=== PATIENT | male | born 1975 | race Caucasian/White ===

== ENCOUNTER 2017-09-16 06:12 | Observation (INO) ==
[2017-09-16] MEDS ORDERED: Albuterol 2.5 MG/3 ML NEBULIZER ONE (06:35)
[2017-09-16] MEDS ORDERED: Ringers Solution, Lactated 1,000 ML IVC SCH (06:45)
[2017-09-16] MEDS ORDERED: Vancomycin (wt based) 1,000 MG VIAL IV ONE (07:00)
--- NOTE | 2017-09-16 07:17 | Anesthesia Evaluation PreOp ---
Date of Encounter: 09/16/17 Time of Encounter: 07:14 - Past History Planned Operation: I and D debride left foot all infected tissue and bone, Cardiac History: HTN Pulmonary History: Smoker (did smoke today) FOOD PRODUCTION ASSOCIATE History: Denies Any Significant HX Other Medical History: Diabetes Type II Anesthesia History: No Prior Anesthetic Complications, Past Anesthesia (L great toe amputation, I and D L foot abcess, I and D Rt foot) Alcohol Use: rarely Drug use: unknown Medications and Allergies GlipiZIDE [Glucotrol] 5 mg PO BID 07/16/15 [History] HYDROcodone/Acet 5/325 mg [[place] 5-325 mg] 1 tab PO Q6H #16 tab 09/18/16 [Rx] Sulfamethoxazole/Trimeth DS [Bactrim DS] 1 each PO BID #20 tablet 09/18/16 [Rx] Clindamycin HCl [Cleocin HCl] 150 mg PO QID #40 capsule 09/22/16 [Rx] HYDROcodone/Acet 5/325 mg [[place] 5-325 mg] 1 tab PO Q6H PRN #14 tab 09/22/16 [Rx ] 3 Allergy/AdvReac Type Severity Reaction Status Date / Time No Known Allergies Allergy Verified 09/16/17 07:23 - Meds/Allergy Pre-op Review Medications Reviewed: Yes Allergies Reviewed: Yes Beta Blockers on Current Med List: No Anesthesia Results - Labs Laboratory Tests 09/06/17 17:42 WBC 8.9 RBC 4.26 Hgb 11.9 L Hct 36.6 L Plt Count 466 H - Imaging EKG: report reviewed (SR PACs) Anesthesia Exam O2 Sat Height 1.93 m Height 1.93 m Weight 141.521 kg Weight 141.521 kg O2 Sat by Pulse Oximetry 96 Vital Signs Temp Pulse Resp BP Pulse Ox 98.0 F 72 18 147/84 96 09/16/17 06:31 09/16/17 06:31 09/16/17 06:31 09/16/17 06:31 09/16/17 06:31 Blood glucose: 233 Height: 6'4" Weight: 312# NPO (# of Hours): >8 Pain Scale: 0 - HEENT Pupil (Motor): Pupils equal, EOMI Mallampati: II Oral Opening: Greater than 3 - FOOD PRODUCTION ASSOCIATE LOC: Oriented FOOD PRODUCTION ASSOCIATE Motor: Normal RUE, Normal LUE, Normal RLE, Normal LLE, Normal Face FOOD PRODUCTION ASSOCIATE Sensory: Normal: RUE, LUE, Face, Deficit: RLE (numbness), LLE (numbness) - Cardiac Rhythm: Regular - Pulmonary Breath Sounds: bilateral Clear Respiratory Effort: Symmetrical Anesthesia Assess/Plan ASA Score: 3 (HTN, smoker, DM) Modified [place] Scale for Level of Consciousness: Cooperative, oriented, and tranquil Anesthetic Plan: MAC (r/b/a discussed, questions answered, consent obtained, plan b GA) Monitoring Plan: Standard Monitors Recovery Plan: PACU
[2017-09-16] MEDS ORDERED: Bupivacaine/Clonidine Syringe 1 EACH SYRINGE ONE (07:22)
[2017-09-16] MEDS ORDERED: Ketamine *HR* 500 MG/10 ML MDV ONE (07:26)
[2017-09-16] MEDS ORDERED: *HR* FentaNYL (PF) 100 MCG/2 ML VIAL ONE (07:26)
[2017-09-16] MEDS ORDERED: Propofol 500 MG/50 ML INFUS..BTL ONE ×2 (07:29→08:14)
--- NOTE | 2017-09-16 07:34 | History & Physical Report ---
Date of Encounter: 09/16/17 Time of Encounter: 07:34 24 Hour HP Update - Instructions Instructions: If the History and Physical is less than 30 days old and was completed prior to A.M. admission and or procedure and has NOT been updated on calendar day of procedure please complete this update prior to performing procedure. - Update Patient reports changes in Medical Condition: No Changes in examination, assessment, or condition: No Changes in Medication: No Preop tests/diagnostics Reviewed: Yes Pre-Op MRSA Screen: Positive, Vancomycin for Prophylaxis Surgery Remains Indicated: Yes Consent for Planned Operative Procedure(s) Verified: Yes
[2017-09-16] MEDS ORDERED: Lidocaine -MPF 2% 2 ML VIAL ONE (07:44)
[2017-09-16] MEDS ORDERED: Vancomycin 1,000 MG VIAL ONE (07:48)
--- NOTE | 2017-09-16 09:55 | Anesthesia Evaluation Post Op ---
Date of Encounter: 09/16/17 Time of Encounter: 09:54 - Vital Signs Vital Signs: Vital Signs/O2 Sat, Most Current Temp Pulse Resp BP Pulse Ox 98.0 F 72 18 147/84 96 09/16/17 06:31 09/16/17 06:31 09/16/17 06:31 09/16/17 06:31 09/16/17 06:31 - Lungs Lungs: Clear Ascult./Percussion - Airway Airway: Non-obstructed - Cardiovascular Regular Rate - Mental Status Mental Status: Asleep with brisk response to light stimulation - Pain Pain Scale: 0 Pain Scale used: Numeric (1 - 10) - Nausea Vomiting Nausea Vomiting: Not Present - Hydration Hydration: Tolerates oral liquids - Discharge PostOp Status: Transfer Patient to floor Attestation: I have assessed this patient and find they meet discharge criteria.
[2017-09-16 11:42] LABS: Basophils % 0.6 %; Eosinophils # 0.2 K/mcL (0.0-0.6); Eosinophils % 2.9 %; Hemoglobin 11.2 g/dL (12.9-16.9); Immature Granulocytes % 0.4 % (0-4); Lymphocytes % 43.7 %; Mean Corpuscular HGB Conc 31.1 g/dL (31.6-35.5); Mean Corpuscular Hemoglobin 27.8 pg (28.0-33.3); Mean Corpuscular Volume 89.3 fL (83.0-100.0); Mean Platelet Volume 10.4 fL (9.4-12.4); Monocytes # 0.4 K/mcL (0.0-1.3); Monocytes % 6.2 %; Neutrophils # 3.1 K/mcL (1.6-8.9); Platelet Count 332 K/mcL (140-400); Red Blood Count 4.03 M/mcL (4.19-5.50); Red Cell Distribution Width 13.2 % (11.5-14.5); Segmented Neutrophils % 46.2 %
[2017-09-16 11:57] LABS: BUN/Creatinine Ratio 25 (6-26); Blood Urea Nitrogen 24 mg/dL (6-20); eGFR For African Americans > 60 (> 60); eGFR For Non-African Americans > 60 (> 60)
--- NOTE | 2017-09-16 14:37 | Infectious Disease Consult ---
Date of Encounter: 09/16/17 Time of Encounter: 14:35 Assessment and Plan (1) Left foot infection Status: Acute Assessment and plan: Location: Left foot. Causative organism: MRSA and Acinetobacter baumannii (Intermediate to Rocephin) per cultures obtained in the office 09/06/17. Secondary to non-healing wound sustained last summer when he stepped on a bolt at work. X-ray of the foot done 09/06/17 showed some soft tissue air, but no osteomyelitis. ESR >130, CRP 54. Podiatry consulted and following. Status post left foot I & D 09/16/[address] Dai. Operative report not available at this time. Await intra-op cultures, but not sure how helpful they will be since the patient was on PO antibiotics at home. Await intra-op cultures and monitor for anaerobic cultures to come back positive. Start Vancomycin IV. Pharmacy to dose. Goal trough ~15. Start Levaquin 750mg IV daily. Start probiotics. Wound care and activity restrictions per the podiatry team. Repeat inflammatory markers prior to discharge. Duration of treatment depends on the clinical picture, but likely 6 weeks of IV antibiotics. Monitor renal function and for drug toxicity and dose-adjust antibiotics. PICC Line placed pre-op today. Will need weekly CBC, BUN/Cr, ESR, CRP, and Vanc trough. Will need weekly PICC care per protocol. Follow up with ID 10/04/17 at 0920. (2) Foot ulcer due to secondary DM Status: Acute Assessment and plan: Secondary to traumatic injury after stepping on a bolt several months ago. Non-healing likely due to poorly controlled diabetes. Wound care per the podiatry team. (3) Diabetes mellitus type II, uncontrolled Status: Acute Assessment and plan: Uncontrolled. HgbA1C 9.3% Recommend aggressive glucose monitoring and control to promote wound healing and prevent re-infection. Management per the primary team. Qualifiers: Qualified Code(s): E11.65 - Type 2 diabetes mellitus with hyperglycemia (4) Obesity (BMI 30-39.9) Status: Acute Infectious Disease HPI - Data of Consult Patient: new to practice Consult date: 09/16/17 Requesting Physician: Nelson Dai, Primary Care Provider: PCP NONE - Consult Narrative Reason for consult: Left foot infection History of present illness: Mr. Gabriel is a 41 year old male with a past medical history of uncontrolled diabetes diagnosed 10 years ago who is supposed to take oral anti- hyperglycemics who is noncompliant the remote history of partial a beautician of the right foot second toe incomplete amputation of the left foot great toe. The patient was admitted to the hospital September 16 for surgical management of a left foot infection. We are consulted for 15 for antibiotic recommendations for left foot infection. Foot, the patient is a 41-year-old male with a past medical history as stated above. The patient states that last summer he stepped audible at work and sustained an injury to the plantar aspect of his left foot. He states that the wound was nonhealing until a couple of months ago when finally healed over, but opened back up about 5 weeks ago. He states he fell at work and [facility], but was noted to have worsening of the ulcer at that time. He was evaluated by podiatry and recommended to have a transmetatarsal a beautician, which the patient refused. After discharge, he followed up with Dr. Dai was seen in the office on September 06. Wound culture obtained at that visit grew Acinetobacter baumannii and MRSA. He had a foot x- ray that was negative for osteoarthritis, but did show some soft tissue air. He was started on oral clindamycin and oral Levaquin. He had labs drawn that showed a normal white blood cell count, but did show an ESR or than 130 and a CRP of 54. His A1c was 9.3. He was advised to go to the hospital for admission and surgery, but declined at that time. He was scheduled for surgery earlier today and underwent an incision and debridement of the left foot. The operative report is not available at this time, but I did speak with Dr. Dai he states the infection is extensive and the patient will likely require IV antibiotics. We've been asked to evaluate and make further recommendations. My exam today, the patient endorses a history as stated above. He denies any fevers or chills or rigors. He denies any headache or neck pain. He denies a congestion, earache, or sore throat. He denies any chest pain, shortness of breath, or cough. He denies any nausea, vomiting, diarrhea, constipation. He denies abdominal pain or urinary complaints. He states appetite is good. He states he does not regularly check his blood sugars at home. He reports intermittent chronic pain in the left foot, but nothing out of the ordinary. He denies any pain in his back or extremities at this time. He states there was some light green drainage from the wound and he noticed a foul odor over the past couple days. He denies oral thrush or new skin lesions. The patient lives at home by himself. 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 Reports he smokes about half pack of cigarettes per day, which is down significantly from 3 packs of cigarettes he was smoking per day. He reports social use of alcohol, but denies any illicit drug use. He does not have any pets at home. He denies recent travel. CC: Nelson Dai, Past Med Surg Social Fam HX - Past Medical History Attestation: Yes The following information was validated with the patient. Source: patient, old records reviewed, nursing notes reviewed Medical history: diabetes (Uncontrolled, not on any treatment), hypertension, other Psychiatric history: depression - Past Surgical History Surgical History: orthopedic, other (Left great toe amputation, Right second toe partial amputation) - Social History Smoking Status: Current every day smoker Packs per day: 1/2 Smokeless Tobacco Status: No Alcohol use: rarely Drug use: unknown Occupational status: employed Current living situation: Home - Independent Activity Level: Independent ambulation Recent Out of Country Travel Within the Last 8 Weeks: No Exposure or Possible Exposure to Illness During Travel: No - Family History Mother Living Status: Still Living Hx Family Cardiac Disorders: Yes (cad) Father Living Status: Hx Family Cardiac Disorders: Yes (cad) Hx Family Endocrine Disorder: Yes (DM) Infectious Disease-CN:Meds No Known Home Drugs 09/16/17 [History] 3 Allergy/AdvReac Type Severity Reaction Status Date / Time No Known Allergies Allergy Verified 09/16/17 07:23 All systems: reviewed and no additional remarkable complaints except as stated Exam - Constitutional Vitals: Temp Pulse Resp BP Pulse Ox 97.6 F 70 16 169/92 98 09/16/17 12:50 09/16/17 12:50 09/16/17 12:50 09/16/17 12:50 09/16/17 12:50 General appearance: cooperative, no acute distress, obese - Head Head exam: Present: atraumatic, normal inspection, normocephalic - Eye Eye exam: Present: EOMI, normal appearance, PERRL Pupils: Present: normal accommodation - ENT ENT exam: Present: mucous membranes moist - Neck Neck exam: Present: normal inspection - Respiratory Respiratory exam: Present: CTAB. Absent: rales, respiratory distress, rhonchi, wheezes - Cardiovascular Cardiovascular exam: Present: RRR, +S1, +S2 - GI/Abdominal GI/Abdominal exam: Present: distended (obese), normal bowel sounds, soft. Absent: tenderness - Extremities Exam Extremities exam: Present: normal inspection Additional comments: Distal aspect of right toe #2 previously amputated with callous noted to the distal plantar aspect. Left foot post-op dressing C/D/I. - Neurological Exam Neurological exam: Present: alert, oriented X3, no focal deficits - Psychiatric Psychiatric exam: Present: normal affect, normal mood - Skin Skin exam: Present: dry, intact, normal color, warm Infectious Disease CN: Results - Labs CBC & Chem 7: 09/16/17 11:30 09/16/17 11:30 - VTE Documentation of Mechanical Device: Intermittent pneumatic compression device Consult Discharge Plan - Plan Referrals: Beatriz Gleason CNP [Advanced Practice Nurse] - 10/04/17 9:20 am - Attending Attestation I examined this patient and my medical decision-making was reviewed with the Resident Physician. I agree with the documented findings, disposition and treatment plan as described except to the extent set forth below. This is an addendum to original report dictated by Beatriz Gleason CNP, please refer to Fede hawkins for full details. Patient is a 5-year-old gentleman has been diabetic for about 10-11 years that is very poorly controlled because of noncompliance. Patients most recent A1c I believe is 9 or 10. Patient has had osteomyelitis of the bilateral foot in the past and has had amputations of the left great toe and the right second toe for infections in the past. Exact details of these infections are not clear. Apparently patient has this nonhealing foot ulcer. Patient stepped on a bolt at work apparently. Patient was evaluated a couple weeks ago about [place] and they were recommending transmetatarsal amputation. Patient was evaluated and seen by Dr. Dai who recommended admitting but the patient refused so the patient was started on oral clindamycin and Levaquin and cultures were obtained. Cultures grew MRSA and Acinetobacter baumanni patient was brought in for I&D. Patient was taken to surgery where he had an amputation of the left great toe. Intra-Op cultures were sent. Patient was started empirically on vancomycin and Levaquin. We were asked to evaluate the patient and make further recommendations. At this point patient likely has osteomyelitis. Await final report and will discuss with podiatry. Likely he will need IV antibiotics since PICC line has been placed. We will continue vancomycin pharmacy to dose with goal vancomycin trough of 15 Start Levaquin 750 mg IV daily Monitor kidney function closely Monitor for drug drug interaction Check inflammatory markers prior to discharge Duration and treatment of antibiotics depends on the clinical picture.
[2017-09-16] MEDS: Lactobacillus 1 EACH CAP.SPRINK PO SCH (15:55)
--- NOTE | 2017-09-16 17:11 | Orthopedic Operative Note ---
Date of procedure: 09/16/17 Pre-op diagnosis: Osteomyelitis with abscess, toe #2 and sinus tracts left forefoot Post-op diagnosis: other (Ulceration plantar first metatarsal distal left foot) Procedure: 09/16/17 17:10 #1: Incision of bone cortex for osteomyelitis #2 partial excision of distal metatarsal #2 for osteomyelitis #3 amputation of toe #2 left foot #4 adjacent tissue transfer left foot 09/16/17 17:11 Implants: None Complications: None Anesthesia: MAC, local Local Anesthetics: 0.25% Sensorcaine HCL SubQ (cc) Surgeon: Nelson Dai Was there an customer care assistant present: No Kitchen Manager Other: Cash Francisco D.O. Estimated blood loss (cc): 20 Tourniquet Time (Minutes): 0 Specimen: Toe #2 left foot Condition: stable Disposition: floor Procedure in Detail: 09/16/17 17:13 Details in summary of procedure: The patient was brought to the surgical suite. A sign in procedure was performed. He was then transferred to the surgical table and positioned properly safely securely. The left foot was then elevated on a foam block. Anesthetic timeout was taken. Left ankle was then prepped with alcohol 3 times. An ankle block was then carried out. An ankle tourniquet was applied but not employed. The left foot was then prepped and draped in usual sterile manner. Surgical timeout was taken. Planned incision was then centered around the sinus tract was on the plantar aspect of the second MTPJ and another sinus tract at the 10 o'clock position of the ulceration beneath the distal first metatarsal. These 2 sinus tracts connected plantarly just beneath the second metatarsal distally. The incision was begun at the dorsal aspect of the second metatarsophalangeal joint and brought distally to the midshaft of the proximal phalanx and then 2 semielliptical incisions were then made in a racquet fashion meeting at the sulcus at the base of the second toe it was then brought obliquely toward the phlegmon/sinus tract where 2 more similar elliptical incisions were used to encompass a sinus tract and then proximally and medially toward the sinus tract at the 10 o'clock position of the ulceration. The second toe was then dissected free beginning at the periosteum the base proximal phalanx to the metatarsophalangeal joint where the ligamentous structures were divided as well as the extensor and flexor tendons cleanly with a #15 scalpel blade. The toe was then disarticulated and sent for gross and microscopic. There is noted to be seropurulent drainage at the base of the proximal phalanx but did not invade the joint. The wound was flushed with copious amounts sterile saline. The incision was then deepened in the oblique fashion where two elliptical incisions were completed a sinus tract excised. The incision was continued proximally and obliquely toward the original sinus tract from the ulceration. All sinus tracts were then excised completely down to the distal aspect of the second metatarsal. The distal aspect the second metatarsal was then isolated with a McGlamry elevator. The distal aspect of the metatarsal was found to be of normal color texture and density although we are quite irregular. At that point the soft tissue was reflected off the distal metatarsal dorsally medially and laterally with a McGlamry elevator. The distal aspect the second metatarsal was then resected dorsal plantar fashion cleanly with #111 blade on a TPS sagittal saw. Remaining bone was of normal color texture density as well. The wound was thoroughly debrided with a [employer] debrider. Any redundant tissue dorsally was then remodeled accordingly. The soft tissue was then debrided with a pickup and Metzenbaum as well any nonviable tissue was thoroughly debrided. The wound was thoroughly irrigated again. At that juncture, the adjacent tissue transfer was then performed by transposing the dorsal medial flap, which was then repositioned, to the lateral incision line.. A 2-0 Prolene and 3-0 Prolene sutures were then placed and tied sequentially. Hemostasis was completely achieved prior to closure. The ulceration was then excised with a #15 scalpel blade to obtain a fresh skin edge. The wound was then dressed with Adaptic 4 x 4's and Coban and for compression dressing. Estimated blood loss less than 20 mL. Complications none.. The patient was then transferred to the holding room in good condition with vital signs stable.
[2017-09-16] MEDS ORDERED: D5% in Water 1,000 ML IVC PRN (19:16)
[2017-09-16] MEDS ORDERED: *HR* Dextrose 50 % in Water (Syg) 50 ML SYRINGE IVP PRN (19:16)
[2017-09-16] MEDS ORDERED: Dextrose Gel 15 GM/37.5 ML TUBE PO PRN ×2 (19:16)
--- NOTE | 2017-09-16 19:51 | Internal Medicine Consult Note ---
Date of Encounter: 09/16/17 Time of Encounter: 19:48 - Assessment and Plan (1) Osteomyelitis of foot, left, acute Current Visit: Yes Status: Acute Assessment and plan: Operative management per podiatry. Infectious disease service on board managing antibiotic therapy. (2) Tobacco abuse Current Visit: Yes Status: Acute Assessment and plan: I advised smoking cessation and provided counseling. I will order nicotine patch. (3) DVT prophylaxis Current Visit: Yes Status: Acute Assessment and plan: High risk for DVT due to infection and recent surgery. I will order Lovenox subcutaneous. (4) Diabetes mellitus type II, uncontrolled Current Visit: Yes Status: Acute Assessment and plan: We will start insulin. Diabetic education. Nutrition consult. Diabetic diet. He will likely need to be discharged with insulin. 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 (6) Foot ulcer due to secondary DM Current Visit: No Status: Acute (7) Essential hypertension Current Visit: Yes Status: Acute Assessment and plan: He has multiple elevated blood pressure readings, likely secondary to essential hypertension. I will start losartan. Thank you for involving us in the care of this patient. We will follow along. Internal Medicine - CN: HPI - Data of Consult Patient: new to practice Consult date: 09/16/17 Requesting Physician: Nelson Dai, - Consult Narrative Reason for consult: Perioperative medical management of elevated blood pressure History of present illness: Mr. Gabriel is a 41 year old male with past medical history significant for type 2 diabetes and obesity who was brought in electively by podiatry for incision and debridement of the left foot ulceration. I evaluated him postoperatively. He developed a left foot wound months ago when he stepped on a sharp metallic object. Initially the wound has healed but 1 month ago left foot started swelling up and the wound both opened up and drained pus. He presented to an outside hospital and had a brief course of vancomycin however he signed out AMA. He was seen by Dr. Dai in the office 10 days ago and was scheduled for incision and debridement today. He has been diagnosed with diabetes and prescribed metformin which he did not tolerate due to profuse diarrhea. He was prescribed glipizide which caused him mental confusion. He stopped taking all antidiabetic medication. Currently he is not taking no prescription medication and he does not have a PCP. He admits to drinking regular soda and not following a strict diabetic diet. For the last 10 days has been experiencing mild dull left foot pain, throbbing, worse with ambulation, denies associated fevers or chills. Review of systems pertinent for foot numbness, otherwise negative. Family history: Patient's father suffered with diabetes and of heart disease. 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 Past Med Surg Social Fam HX - Past Medical History Medical history: diabetes (Uncontrolled, not on any treatment), hypertension, other Psychiatric history: depression - Past Surgical History Surgical History: orthopedic, other (Left great toe amputation, Right second toe partial amputation) - Social History Smoking Status: Current every day smoker Packs per day: 1/2 Smokeless Tobacco Status: No Alcohol use: rarely Drug use: unknown - Family History Mother Living Status: Still Living Hx Family Cardiac Disorders: Yes (cad) Father Living Status: Hx Family Cardiac Disorders: Yes (cad) Hx Family Endocrine Disorder: Yes (DM) Internal Medicine - CN: Meds No Known Home Drugs 09/16/17 [History] 3 Allergy/AdvReac Type Severity Reaction Status Date / Time No Known Allergies Allergy Verified 09/16/17 07:23 Internal Medicine - CN: Exam - Constitutional Vitals: Temp Pulse Resp BP Pulse Ox 98.2 F 61 15 167/74 97 09/16/17 16:05 09/16/17 16:05 09/16/17 16:05 09/16/17 17:52 09/16/17 16:05 General appearance IM: Present: A&O X 3, no acute distress - Head Head exam: Present: atraumatic - Eye Eye exam: Present: EOMI, PERRL. Absent: scleral icterus - Respiratory Respiratory exam: Present: CTAB. Absent: accessory muscle use, wheezes - Cardiovascular Cardiovascular exam IM: Present: RRR, +S1, +S2. Absent: systolic murmur, tachycardia - GI/Abdominal GI/Abdominal exam IM: Present: soft. Absent: distended, guarding, rebound, no peritoneal signs - Extremities Exam Additional comments: Left foot covered with surgical dressing clean dry and intact - Skin Skin exam IM: Present: dry, intact. Absent: erythema Internal Medicine - CN: Reslt - Labs CBC & Chem 7: 09/16/17 11:30 09/16/17 11:30 Labs: Short CBC 09/16/17 Range/Units 11:30 WBC 6.8 (4.3-11.1) K/mcL Hgb 11.2 L (12.9-16.9) g/dL Hct 36.0 L (37.5-50.1) % Plt Count 332 (140-400) K/mcL Neutrophils # 3.1 (1.6-8.9) K/mcL BMP 09/16/17 11:30 BUN 24 H Creatinine 0.96 - Impressions Impressions Foot X-Ray 09/16/17 10:05 IMPRESSION: Postoperative changes of resection of the distal 2nd digit. D/ / 09/16/2017 10:56:23 Sharath Ornelas MD / yola Interpreting Provider: Sharath Ornelas MD Consult Discharge Plan - Plan Referrals: Beatriz Gleason RNP [Advanced Practice Nurse] - 10/04/17 9:20 am
[2017-09-16] MEDS: Nicotine 21 MG PATCH.TD24 TD SCH (21:29)
[2017-09-16] MEDS: Insulin LISPRO 300 UNITS/3 ML VIAL SQ SCH (21:29)
[2017-09-16] MEDS: Insulin DETEMIR 100 UNIT/ML X5UNITS SQ SCH (21:29)
[2017-09-16 21:47] LABS: Hemoglobin A1C 9.7 %
[2017-09-17 03:28] LABS: Basophils % 0.4 %; Eosinophils # 0.2 K/mcL (0.0-0.6); Eosinophils % 3.2 %; Hematocrit 34.7 % (37.5-50.1); Immature Granulocytes % 0.6 % (0-4); Lymphocytes # 2.3 K/mcL (0.6-4.6); Lymphocytes % 33.4 %; Mean Corpuscular HGB Conc 31.7 g/dL (31.6-35.5); Mean Corpuscular Hemoglobin 27.9 pg (28.0-33.3); Mean Corpuscular Volume 88.1 fL (83.0-100.0); Mean Platelet Volume 10.4 fL (9.4-12.4); Monocytes # 0.5 K/mcL (0.0-1.3); Monocytes % 7.3 %; Neutrophils # 3.8 K/mcL (1.6-8.9); Platelet Count 333 K/mcL (140-400); Red Blood Count 3.94 M/mcL (4.19-5.50); Red Cell Distribution Width 13.1 % (11.5-14.5); Segmented Neutrophils % 55.1 %
[2017-09-17 03:55] LABS: BUN/Creatinine Ratio 22 (6-26); Blood Urea Nitrogen 19 mg/dL (6-20); Calcium 8.5 mg/dL (8.6-10.3); Carbon Dioxide 29 mEq/L (23-29); Chloride 104 mEq/L (98-107); Glucose 156 mg/dL (70-105); Osmolality,Calculated 289 (280-300); Potassium 3.9 mEq/L (3.5-5.1); Sodium 137 mEq/L (136-145); eGFR For African Americans > 60 (> 60); eGFR For Non-African Americans > 60 (> 60)
[2017-09-17] MEDS ORDERED: *HR* Enoxaparin 40 MG/0.4 ML SYRINGE SQ SCH (06:00)
[2017-09-17] MEDS: Lactobacillus 1 EACH CAP.SPRINK PO SCH (08:14)
[2017-09-17] MEDS: Insulin LISPRO 300 UNITS/3 ML VIAL SQ SCH ×4 (08:14→22:00)
[2017-09-17] MEDS: Nicotine 21 MG PATCH.TD24 TD SCH (08:15)
[2017-09-17] MEDS: Insulin DETEMIR 100 UNIT/ML X5UNITS SQ SCH ×2 (08:15→22:00)
[2017-09-17] MEDS ORDERED: levoFLOXacin 500 MG TABLET PO SCH (09:00)
[2017-09-17] MEDS ORDERED: Levofloxacin 750 MG/150 ML 750 MG/150 ML BAG IVPB SCH (09:00)
[2017-09-17] MEDS ORDERED: Nicotine 21 MG PATCH.TD24 TD SCH (09:00)
--- NOTE | 2017-09-17 14:25 | Podiatry Progress Note ---
Date of Encounter: 09/21/17 Time of Encounter: 12:30 - Assessment and Plan (1) Foot ulcer due to secondary DM Status: Acute 1 day s/p I&D of left foot ulceration per due to non healing wound patient reports he sustained last summer from a bolt Dressing CDI on arrival Removed at bedside,will apply wound vac today Small black simplace sponge placed to wound, tracked medially as to avoid suture line to avoid maceration. Tracked to top of foot. 125mmHg suction applied with minimal leak. Dry dressing placed to surgical line. Kerlix applied for protection Will need home health care in place for MWF dressing changes. Patient will be protective weight bearing to foot with CAM boot at bedside - weight to heel Patient will be discharged with wound vac- paperwork has been faxed to [place] with social work and is awaiting insurance approval Will be discharged with IV antibiotic therapy per ID recommendations , likely 3- 6 weeks pending clinical picture Will need to be seen in podiatry clinic per 1 week after discharge (2) Osteomyelitis of foot, left, acute Status: Acute Antibiotic coverage as outlined per ID team- recommendations appreciated PICC in place for discharge 09/06/17 clinic cultures isolated MRSA and Acinetobacter Admit ESR >130 and CRP 54. ESR now 89. Temp 98.0 Current coverage vancomycin and levaquin pending intra op cultures Patient was recommended to stay until wednesday- States he is going home today- States "I will pull this thing off of my foot and my hand works just fine to sign myself out of here, I am not staying" explained that we are waiting insurance approval, states he does not care, hes going home today. Patient instructed this could result in poor outcomes, limb loss, return to surgery, or even . States he will be fine. Objective - Vital Signs Vital Signs: Vital Signs Temp Pulse Resp BP Pulse Ox 09/17/17 12:05 98.0 F 72 17 162/96 94 09/17/17 07:46 98.3 F 69 16 128/79 97 09/17/17 03:15 98.2 F 66 14 150/89 95 09/17/17 01:08 98.3 F 66 12 168/79 97 09/16/17 20:17 98.7 F 62 14 155/76 95 09/16/17 17:52 167/74 09/16/17 16:05 98.2 F 61 15 181/106 97 Intake and Output 09/16/17 09/17/17 09/17/17 23:59 07:59 15:59 Intake Total 910 / 910 50 / 50 650 / 650 Balance 910 / 910 50 / 50 650 / 650 Intake: IV Fluids 500 / 500 650 / 650 Levaquin Premix 750mg/150 mL 150 / 150 750 mg In 150 ml @ 100 mls/hr IVPB DAILY [facility] Rx#:[id number] Vancocin 2,000 MG In 0.9 % 500 / 500 500 / 500 Sodium Chloride 500 ML @ 334. 014 mls/hr IVPB Q12H [facility] Rx#: [id number] Oral 410 / 410 50 / 50 Other: Meal Dinner Percent of Meal Consumed 100% # Voids 1 Blood Glucose* 230 230 - Exam Exam: Podiatry General Exam: General appearance: alert awake oriented X 3. Calm and pleasant, angry at times Vascular: Pedal pulses +2/4 DP/PT , No evidence of cyanosis, pallor or rubor, Edema graded at 1+/4, Skin Temperature warm, No calf pain with manual compression. capillary refill time is immediate to digits. Neurologic: minimal sensation to moderate touch- neuropathic Postop Exam: S/P Sutures intact to incision line, no signs of dehiscence. No signs of maceration. Small created open surgical wound- to plantar aspect of foot, healthy granulation tissue. No purulent drainage. Minimal edema or erythema. No odor. No sinus tracts or tunneling. no streaking. Minimal edema. - Lab Result Diagrams: 09/17/17 03:15 09/17/17 03:15 Labs: Abnormal lab results RBC 3.94 M/mcL (4.19-5.50) L 09/17/17 03:15 Hgb 11.0 g/dL (12.9-16.9) L 09/17/17 03:15 Hct 34.7 % (37.5-50.1) L 09/17/17 03:15 MCH 27.9 pg (28.0-33.3) L 09/17/17 03:15 ESR 89 mm/hr (0-10) H 09/16/17 11:30 Glucose 156 mg/dL (70-105) H 09/17/17 03:15 POC Glucose 230 (58-89) H 09/17/17 07:55 Hemoglobin A1c 9.7 % (-5.6) H 09/16/17 11:30 Calcium 8.5 mg/dL (8.6-10.3) L 09/17/17 03:15 - VTE Documentation of Mechanical Device: Intermittent pneumatic compression device Consult Discharge Plan - Plan Additional Instructions: Please notify physician or return to ER if you should notice excessive redness, fever, chills, odor or drainage. Follow up as scheduled with Dr. Dai and Infection Disease. Referrals: Beatriz Gleason, [employer] [Advanced Practice Nurse] - 10/04/17 9:20 am Prescriptions: Levofloxacin 750 MG/150 ML [Levaquin Premix 750mg/150 mL] 750 mg IVPB DAILY 20 Days #20 bag Vancomycin [Vancocin (wt based)] 2,000 mg IV Q12HR 10 Days #20 vial
--- NOTE | 2017-09-17 16:28 | Physician Discharge Referral ---
Home Health/Hosp Referral Info Transfer to: Home Health Attending Provider: Suhas Provider in Charge Post Discharge: PCP (Suhas) - Diagnosis (1) Osteomyelitis of foot, left, acute Priority: Primary Status: Acute - Respiratory Orders Smoking Cessation: Smoking cessation has been advised. For more information, call the [place] Tobacco Quit Line at 0-755-NWMK-NOW. - Dressing/Wound Care Site: Left left foot Type of Dressing/Treatments w/Frequency: Wound VAC left foot ulcer, black sponge 125 mmHg continuous low vacuum. Only place drape over the wound avoid placing drape over the incision/sutures - Transfer Medications Prescriptions: Vancomycin [Vancocin (wt based)] 2,000 mg IV Q12HR 10 Days #20 vial Levofloxacin 750 MG/150 ML [Levaquin Premix 750mg/150 mL] 750 mg IVPB DAILY 20 Days #20 bag Home Medications: Levofloxacin 750 MG/150 ML [Levaquin Premix 750mg/150 mL] 750 mg IVPB DAILY 20 Days #20 bag 09/17/17 [Rx] Vancomycin [Vancocin (wt based)] 2,000 mg IV Q12HR 10 Days #20 vial 09/17/17 [Rx ] Allergies/Adverse Reactions: 3 Allergy/AdvReac Type Severity Reaction Status Date / Time No Known Allergies Allergy Verified 09/16/17 07:23 Certification: Further, I certify that my clinical findings support that this patient is homebound (i.e. absences from home require considerable and taxing effort and are for medical reasons or islam services or infrequently or short duration when for other reasons) because: Homebound Reason: Patient requires assistance of a person or device to safely leave home Attestation: My signature below is to certify that this patient is under my care and that I, or nurse practitioner, or a physician's trust administrative assistant working with me, has a face-to -face encounter with this patient.
--- NOTE | 2017-09-17 17:45 | Physician Discharge Referral ---
Home Health/Hosp Referral Info Attending Provider: Suhas - Diagnosis (1) Osteomyelitis of foot, left, acute Status: Acute - Respiratory Orders Smoking Cessation: Smoking cessation has been advised. For more information, call the [employer] Tobacco Quit Line at 6-258-VKRZ-NOW. - Dressing/Wound Care Site: #1: Left foot wound. Site of application of wound VAC and dressing changes for incisional wound Wednesday. #2: PICC line protocol Type of Dressing/Treatments w/Frequency: #1: Applied wound VAC to ulceration of the distal plantar aspect of left foot. Wound VAC black sponge vacuum to be set at 125 mmHg. Please try to avoid placing any drape over the suture line of the wound.. The wound VAC is to be changed Wednesday. #2 antibiotic therapy given per PICC line, vancomycin 2 g every 12 hours. Levaquin 750 mg daily - Diet/Nutrition Diet/Nutrition Orders: No Concentrated Sweets - Activity Activity Orders: Ambulate (Ambulate with cast boot. Weight-bearing to left heel only recommend use of cane or crutch) - Services Needed Following services are medically necessary services: Nursing, Home Infusion (.) Home Care Orders: #1 home care orders as above. Dressing change to left foot. Wednesday wound VAC 125 mmHg. Placed directly over ulceration. Please avoid placing drape over the incision line. Vacuum low continuous. #2 please apply 4 x 4's and Betadine to the incision line cover with 4 x 4's Kerlix 3 times a week. #3 use cast boot to ambulate with weight on heel only. #4 antibiotics given per protocol vancomycin 2 g every 12 hours for the next 20 days or until seen by infectious disease service to determine appropriate timing and dosing of vancomycin. He will also be given Levaquin 750 mg once daily. #5 he is to have blood drawn per protocol BMP creatinine ESR and CRP weekly as well as a CBC. Blood can be drawn from PICC line. - Transfer Medications Prescriptions: Vancomycin [Vancocin (wt based)] 2,000 mg IV Q12HR 10 Days #20 vial Levofloxacin 750 MG/150 ML [Levaquin Premix 750mg/150 mL] 750 mg IVPB DAILY 20 Days #20 bag Home Medications: Levofloxacin 750 MG/150 ML [Levaquin Premix 750mg/150 mL] 750 mg IVPB DAILY 20 Days #20 bag 09/17/17 [Rx] Vancomycin [Vancocin (wt based)] 2,000 mg IV Q12HR 10 Days #20 vial 09/17/17 [Rx ] Allergies/Adverse Reactions: 3 Allergy/AdvReac Type Severity Reaction Status Date / Time No Known Allergies Allergy Verified 09/16/17 07:23 Certification: Further, I certify that my clinical findings support that this patient is homebound (i.e. absences from home require considerable and taxing effort and are for medical reasons or sabianist services or infrequently or short duration when for other reasons) because: Homebound Reason: Patient requires assistance of a person or device to safely leave home Attestation: My signature below is to certify that this patient is under my care and that I, or nurse practitioner, or a physician's assistant district attorney working with me, has a face-to -face encounter with this patient.
--- NOTE | 2017-09-17 17:50 | Discharge Summary ---
Date of Encounter: 09/17/17 Time of Encounter: 17:48 - Discharge Diagnosis (1) Osteomyelitis of foot, left, acute Priority: Primary Status: Acute - Discharge Medications Prescriptions: Vancomycin [Vancocin (wt based)] 2,000 mg IV Q12HR 10 Days #20 vial Levofloxacin 750 MG/150 ML [Levaquin Premix 750mg/150 mL] 750 mg IVPB DAILY 20 Days #20 bag Home Medications: Levofloxacin 750 MG/150 ML [Levaquin Premix 750mg/150 mL] 750 mg IVPB DAILY 20 Days #20 bag 09/17/17 [Rx] Vancomycin [Vancocin (wt based)] 2,000 mg IV Q12HR 10 Days #20 vial 09/17/17 [Rx ] Allergies/Adverse Reactions: 3 Allergy/AdvReac Type Severity Reaction Status Date / Time No Known Allergies Allergy Verified 09/16/17 07:23 Procedures and tests throughout hospitalization: #1: Surgical intervention with appropriate debridement of tissue and bone with amputation of second toe to control infection without complication. #2 PICC line placed Labs on day of discharge: Labs from last 24 hours 09/17/17 09/17/17 09/17/17 07:55 03:15 03:15 WBC 7.0 RBC 3.94 L Hgb 11.0 L Hct 34.7 L MCV 88.1 MCH 27.9 L MCHC 31.7 RDW 13.1 Plt Count 333 MPV 10.4 Immature Gran % 0.6 Seg Neutrophils % 55.1 Lymphocytes % 33.4 Monocytes % 7.3 Eosinophils % 3.2 Basophils % 0.4 Neutrophils # 3.8 Lymphocytes # 2.3 Monocytes # 0.5 Eosinophils # 0.2 Basophils # 0.0 Sodium 137 Potassium 3.9 Chloride 104 Carbon Dioxide 29 BUN 19 Creatinine 0.88 Est GFR ( Amer) > 60 Est GFR (Non-Af Amer) > 60 BUN/Creatinine Ratio 22 Glucose 156 H POC Glucose 230 H Est Mean Plasma Glucose Hemoglobin A1c Calculated Osmolality 289 Calcium 8.5 L 09/16/17 11:30 WBC RBC Hgb Hct MCV MCH MCHC RDW Plt Count MPV Immature Gran % Seg Neutrophils % Lymphocytes % Monocytes % Eosinophils % Basophils % Neutrophils # Lymphocytes # Monocytes # Eosinophils # Basophils # Sodium Potassium Chloride Carbon Dioxide BUN Creatinine Est GFR ( Amer) Est GFR (Non-Af Amer) BUN/Creatinine Ratio Glucose POC Glucose Est Mean Plasma Glucose 232 Hemoglobin A1c 9.7 H Calculated Osmolality Calcium - Impressions ITS Impressions Foot X-Ray 09/16/17 10:05 IMPRESSION: Postoperative changes of resection of the distal 2nd digit. D/ / 09/16/2017 10:56:23 Sharath Ornelas MD / [email or web address] Interpreting Provider: Sharath Ornelas MD Date of admission: 09/16/17 20:42 Primary care physician: PCP NONE Consults: 09/16/17 10:05 Consult to Hospitalist [CONS] Routine Consulting Provider: Hospitalist Mary Reason for Consult: Diabetes mellitus type 2 with multiple comorbidities Time Notified: 09:15 Call Completed: Yes 09/16/17 11:47 Consult to Infectious Diseases [CONS] Routine Consulting Provider: Mark Hartman Reason for Consult: Left foot osteomyelitis Time Notified: 11:47 Call Completed: Yes 09/17/17 12:29 Consult to Early Childhood [CONS] Routine Reason for SW Consult: d/c planning Discharging clinician: Nelson Dai Anticipated date of discharge: 09/17/17 - Patient Status Disposition: Home Health Service Condition: Fair Functional capacity at discharge: uses cane/walker (Must use cast boot to ambulate weight to heel only) Overall status at discharge: patient is progressing back to baseline - Ambulatory Orders Ambulatory Orders: Basic Metabolic Panel [CHEM] Time Frame: 1 Week, Facility: [facility], Location: Lab C-Reactive Protein [CHEM] Time Frame: 1 Week, Facility: [facility], Location: Lab Complete Blood Count [HEME] Time Frame: 1 Week, Facility: [facility], Location: Lab Creatine Kinase [CHEM] Time Frame: 1 Week, Facility: [facility], Location: Lab Erythrocyte Sedimentation Rate [HEME] Time Frame: 1 Week, Facility: [facility], Location: Lab - Discharge Instructions Follow Up With: Beatriz Gleason CNP [Advanced Practice Nurse] - 10/04/17 9:20 am - Diet and Activity Activity: return to work once cleared by your PCP/specialist, other (Cast boot crutches and/or cane) Diet: diabetic diet - Hospital Course Hospital course: Mr. Gabriel is a 41 year old male with known abscess and osteomyelitis and necrosis of the second toe left foot admitted day of surgery for intravenous antibiotics and surgical intervention. Patient underwent procedure without difficulty or complication. Pathogens known including MRSA. Patient PICC line placed. Home health and infusion services complete. Patient will be followed up with infectious disease within 7 days of discharge and with Dr. Dai within 7 days of discharge - Time Spent with Patient Total time spent providing and/or coordinating discharge services: Specific discharge activities: No weight to left foot ulcer or incision at any time. Please use cast boot and crutches or cane to ambulate - VTE Documentation of Mechanical Device: Intermittent pneumatic compression device Pending Studies None
--- NOTE | 2017-09-17 18:37 | Internal Med Progress Note ---
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 insulin use: without instant printer operator use Qualified Code( s): E11.8 - Type 2 diabetes mellitus with unspecified complications; E11.65 - Type 2 diabetes mellitus with hyperglycemia; E11.65 - Type 2 diabetes mellitus with hyperglycemia; E11.65 - Type 2 diabetes mellitus with hyperglycemia; E11.65 - Type 2 diabetes mellitus with hyperglycemia - Subjective Interval history: Patient with no issues or complaints - Constitutional Vitals: Temp Pulse Resp BP Pulse Ox 98.0 F 72 17 162/96 94 09/17/17 12:05 09/17/17 12:05 09/17/17 12:05 09/17/17 12:05 09/17/17 12:05 General appearance: Present: A&O X 3, no acute distress - Respiratory Respiratory exam: Present: CTAB. Absent: accessory muscle use, rales, rhonchi, wheezes - Cardiovascular Cardiovascular exam: Present: RRR, +S1, +S2. Absent: diastolic murmur, gallop, rubs, systolic murmur Internal Medicine: Result - Labs CBC & Chem 7: 09/17/17 03:15 09/17/17 03:15 Labs: Short CBC 09/17/17 Range/Units 03:15 WBC 7.0 (4.3-11.1) K/mcL Hgb 11.0 L (12.9-16.9) g/dL Hct 34.7 L (37.5-50.1) % Plt Count 333 (140-400) K/mcL Neutrophils # 3.8 (1.6-8.9) K/mcL BMP 09/17/17 03:15 Sodium 137 Potassium 3.9 Chloride 104 Carbon Dioxide 29 BUN 19 Creatinine 0.88 Glucose 156 H Calcium 8.5 L - VTE Documentation of Mechanical Device: Intermittent pneumatic compression device Consult Discharge Plan - Plan Additional Instructions: Please notify physician or return to ER if you should notice excessive redness, fever, chills, odor or drainage. Follow up as scheduled with Dr. Dai and Infection Disease. Referrals: Beatriz Gleason CNP [Advanced Practice Nurse] - 10/04/17 9:20 am Prescriptions: Vancomycin [Vancocin (wt based)] 2,000 mg IV Q12HR 10 Days #20 vial Levofloxacin 750 MG/150 ML [Levaquin Premix 750mg/150 mL] 750 mg IVPB DAILY 20 Days #20 bag
[2017-09-17 20:47] VITALS: BP 142/100
[2017-09-17] MEDS ORDERED: Aminoglycoside Consult 1 EACH MC ONE (22:29)
== END 2017-09-17 22:30 | disposition home health service (06) | DRG 305 ==
LOC: SAMDAY 06:12 → 3NENU 09:52 → SUATTDRO 20:42 → INTOOBSV 20:42
PROVIDERS: ADMIT Podiatrist Foot Surgery; ATTEND Hospitalist